=== PATIENT | female | born 1980 | race Caucasian/White ===

== ENCOUNTER 2020-11-17 22:24 | Inpatient (IN) ==
[~2020-11-17 22:24] MED LIST: Famotidine 20 MG/2 ML VIAL IVP PRN; Metoclopramide 10 MG/2 ML VIAL IVP PRN; Naloxone 0.4 MG/ML INJ IVP PRN; Ondansetron 4 MG/2 ML VIAL IVP PRN
[2020-11-17] MEDS ORDERED: D5% in Lactated Ringers 1,000 ML IVC SCH (22:30)
[2020-11-17] MEDS ORDERED: *HR* HYDROmorphone 20 MG/20 ML PCA IVC PRN (22:34)
[2020-11-17] MEDS ORDERED: Ketorolac 30 MG/ML VIAL IVP PRN (22:35)
[2020-11-17] MEDS ORDERED: Acetaminophen IV 1,000 MG/100 ML BAG IVPB ONE (22:35)
[2020-11-17] MEDS: miSOPROStoL 100 MCG TABLET VG SCH (22:47)
[2020-11-17 22:50] LABS: Basophils % 0.3 %; Eosinophils % 0.2 %; Hematocrit 36.8 % (35.3-44.9); Hemoglobin 12.7 g/dL (11.5-15.4); Immature Granulocytes % 0.6 % (0-4); Lymphocytes # 1.3 K/mcL (0.6-4.6); Lymphocytes % 10.5 %; Mean Corpuscular HGB Conc 34.5 g/dL (31.6-35.5); Mean Corpuscular Hemoglobin 30.6 pg (28.0-33.3); Mean Corpuscular Volume 88.7 fL (83.0-100.0); Mean Platelet Volume 8.4 fL (9.4-12.4); Monocytes # 0.5 K/mcL (0.0-1.3); Monocytes % 3.8 %; Neutrophils # 10.1 K/mcL (1.6-8.9); Platelet Count 326 K/mcL (140-400); Red Blood Count 4.15 M/mcL (3.82-4.97); Red Cell Distribution Width 13.4 % (11.5-14.5); Segmented Neutrophils % 84.6 %
[2020-11-17] MEDS ORDERED: Acetaminophen IV 1,000 MG/100 ML BAG IVPB SCH (23:00)
[2020-11-17 23:02] LABS: Amphetamine Screen,Urine Negative ng/mL (Cutoff=1000); Barbiturate Screen,Urine Negative ng/mL (Cutoff=200); Benzodiazepines Screen,Urine Negative ng/mL (Cutoff=200); Cannabinoid Screen,Urine Negative ng/mL (Cutoff = 50); Cocaine Screen,Urine Negative ng/mL (Cutoff= 300); Opiate Screen,Urine Negative ng/mL (Cutoff=300); Phencyclidine Screen,Urine Negative ng/mL (Cutoff=25)
[2020-11-17 23:51] LABS: Influenza A PCR Negative (Negative); Influenza B PCR Negative (Negative); Resp. Syncytial Virus PCR Negative (Negative)
[2020-11-17 23:59] LABS: SARS-CoV-2 by PCR (In House) Negative (Negative)
[2020-11-18] MEDS: miSOPROStoL 100 MCG TABLET VG SCH (02:03)
[2020-11-18] MEDS ORDERED: Ringers Solution, Lactated 1,000 ML ONE (03:36)
[2020-11-18] MEDS ORDERED: miSOPROStoL 100 MCG TABLET PO STA (05:53)
== END 2020-11-18 11:20 | disposition home or self-care (01) | DRG 807 ==
LOC: 1NENULAB
PROVIDERS: ADMIT Obstetrics & Gynecology; ATTEND Obstetrics & Gynecology